=== PATIENT | male | born 1955 | race Caucasian/White ===

== ENCOUNTER 2021-04-28 20:48 | Emergency (ER) | payer OTHER ==
[~2021-04-28] VITALS: Ht 175.3 cm; Wt 90.7 kg
[2021-04-28] MEDS ORDERED: Lisinopril-Hct1 EAC4 PO (21:27)
[2021-05-01 00:09] LABS: HCV ANTIBODY <0.1 (0.0-0.9); HIV SCREEN 4TH GENERATION WRFX Non Reactive (Non Reactive)
== END 2021-04-28 21:25 | disposition home or self-care (01) ==
LOC: ER 20:48
DX: S69.82XA Other specified injuries of left wrist, hand and finger(s), initial encounter (principal); Z77.21 Contact with and (suspected) exposure to potentially hazardous body fluids; W46.1XXA Contact with contaminated hypodermic needle, initial encounter
CPT/HCPCS: 84460; 86317; 86703; 86803; 87340; 87389; 99283

== ENCOUNTER 2021-10-20 06:10 | Day surgery (SDC) | payer OTHER ==
[~2021-10-20] VITALS: Ht 175.3 cm; Wt 92.8 kg
[~2021-10-20 06:10] MED LIST: Lisinopril-Hct1 EAC4 PO
--- NOTE | 2021-10-20 06:20 | NUR ---
Ambulatory in Day Surgery. PT STATES THOMAS WILL DRIVE HIM HOME. Patient confirms NPO status and agrees with scheduled surgery. Pre-Op teaching done. Pt verbalizes understanding. Patient States Post-Procedure ride home has been arranged.
--- NOTE | 2021-10-20 09:54 | NUR ---
ASSUMED CARE AT 0950. REPORT FROM LITA CRUZ RN
--- NOTE | 2021-10-20 11:03 | NUR ---
Discharge instructions reviewed with patient. Patient verbalizes understanding. Copy given to patient to take home. Dressing to procedure site clean, dry, intact with no visible drainage, swelling, erythema or bruising noted. Discharged via wheelchair to private car for ride home.
== END 2021-10-20 11:05 | disposition home or self-care (01) ==
LOC: ORSCMMR 06:10
PROVIDERS: Surgery
PROC: 0FT44ZZ Resection of Gallbladder, Percutaneous Endoscopic Approach (ICD-10-PCS; principal; 2021-10-20 07:30)
DX: K80.10 Calculus of gallbladder with chronic cholecystitis without obstruction (principal); I10 Essential (primary) hypertension; G47.33 Obstructive sleep apnea (adult) (pediatric); Z79.899 Other long term (current) drug therapy
CPT/HCPCS: 88304; A9270; J0694; J1100; J1885; J2250; J2405; J2704; J2710; J3010; J7120

== ENCOUNTER 2024-07-17 06:15 | Day surgery (SDC) | payer MEDICARE ==
[~2024-07-17] VITALS: Ht 175.3 cm; Wt 88.8 kg
[2024-07-17] VITALS (14 sets, daily range): BP systolic 113–133; BP diastolic 69–83
[~2024-07-17 06:15] MED LIST changes: +PSEUDOEPHEDRIN PO; +TADA10TA
[2024-07-17] MEDS ORDERED: CeFAZolin Sodium 2,000 MG in NS 100 ML IV SCH (06:20)
[2024-07-17] MEDS ORDERED: Lactated Ringer's 1,000 ML IV SCH (06:20)
[2024-07-17] MEDS ORDERED: IBUP600 PO (06:26)
--- NOTE | 2024-07-17 06:46 | NUR ---
History, Chart, Medications and Allergies reviewed before start of procedure. Patient confirms NPO status and agrees with scheduled surgery. Patient States Post-Procedure ride home has been arranged with patient's , Felecia.
[2024-07-17] MEDS ORDERED: Bupivacaine 0.5% HCl 5 MG/ML 30MLVIAL ONE (07:04)
[2024-07-17] MEDS ORDERED: CeFAZolin Sodium 2,000 MG VIAL ONE (07:05)
[2024-07-17] MEDS ORDERED: Midazolam HCl 1MG / ML 2ML Vial IV SCH (07:20)
[2024-07-17] MEDS ORDERED: FentaNYL Citrate 50 MCG/ML 2 ML Injection ONE ×2 (07:29→09:49)
[2024-07-17] MEDS ORDERED: propofoL 20 ML IV ONE (07:29)
[2024-07-17] MEDS ORDERED: Dexamethasone Sod Phos 10 MG/ML 1ML VIAL ONE (08:48)
[2024-07-17] MEDS ORDERED: Ondansetron HCl 2 MG / ML 2ML Vial ONE (08:48)
[2024-07-17] MEDS ORDERED: Rocuronium Bromide 10 MG/ML 5ML Injection IV ONE (08:48)
[2024-07-17] MEDS ORDERED: Phenylephrine HCl 10mg/ml 1 ml Vial ONE (08:49)
[2024-07-17] MEDS ORDERED: Sugammadex Sodium 200 MG/2ML SDV (100 MG/ML) ONE (08:53)
[2024-07-17] MEDS ORDERED: Ketorolac Tromethamine 30mg Vial ONE (08:55)
[2024-07-17] MEDS ORDERED: HYDROmorphone HCl/Pf 1MG SYR ONE (09:00)
[2024-07-17] MEDS ORDERED: HYDROcodone 5-APAP 325 TAB PO PRN (09:35)
--- NOTE | 2024-07-17 11:20 | NUR ---
DISCHARGE NOTE PT A&OX4, BREATHING RA, TOLERATING PO INTAKE, PO PAIN MEDICATION GIVEN PER MD ORDERS. AT BEDSIDE. PT GLASSES IN PLACE, RING BACK ON PRIOR TO DISCHARGE Discharge instructions reviewed with patient. Patient verbalizes understanding. Copy given to patient to take home. Dressing to procedure site clean, dry, intact with no visible drainage, swelling, OR ERYTHEMA NOTED, MILD BRUISING TO L FURTHEST INCISION NOTED. Discharged via wheelchair to private car for ride home.
== END 2024-07-17 11:20 | disposition home or self-care (01) ==
LOC: ORSCMMR 06:15 → ORD 07:30 → ORSCMMR 07:30
PROVIDERS: Surgery
PROC: 0YU64JZ Supplement Left Inguinal Region with Synthetic Substitute, Percutaneous Endoscopic Approach (ICD-10-PCS; principal; 2024-07-17 07:30)
PROC: 8E0W4CZ Robotic Assisted Procedure of Trunk Region, Percutaneous Endoscopic Approach (ICD-10-PCS; principal; 2024-07-17 07:30)
DX: K40.90 Unilateral inguinal hernia, without obstruction or gangrene, not specified as recurrent (principal); I10 Essential (primary) hypertension; G47.33 Obstructive sleep apnea (adult) (pediatric); C61 Malignant neoplasm of prostate; Z79.899 Other long term (current) drug therapy
CPT/HCPCS: A9270; C1781; J0690; J1100; J1171; J1885; J2250; J2371; J2405; J2704; J3010; J7120

== ENCOUNTER 2024-11-17 09:16 | Day surgery (SDC) | payer MEDICARE ==
[~2024-11-17] VITALS: Ht 175.3 cm; Wt 87.2 kg
[2024-11-17] VITALS (12 sets, daily range): BP systolic 100–139; BP diastolic 63–91
[~2024-11-17 09:16] MED LIST changes: +Acetaminophen 500 MG Tab PO SCH; +Bupivacaine 0.5% Inj 10 ML Vial ONE; +CeFAZolin Sodium 2,000 MG VIAL ONE; +CeFAZolin Sodium 2,000 MG in NS 100 ML IV SCH; +Chlorhexidine Mouth Care 15 ML UDC MT SCH; +IBUP600 PO; +Lactated Ringer's 1,000 ML IV SCH; +OxyCODONE HCL 10 MG TABCR PO SCH; +Ropivacaine 0.5% HCl/Pf 123.125 MG,EPINEPHrine HCL 0.25 MG,Ketorolac Tromethamine 15 MG... INFIL SCH; -TADA10TA; +TADA10TA PO; +Tranexamic Acid 100 ML IV SCH; +propofoL 100 ML IV ONE
--- NOTE | 2024-11-17 09:52 | NUR ---
Ambulatory in Day Surgery History, Chart, Medications and Allergies reviewed before start of procedure. Pre-Op teaching done. Pt verbalizes understanding.
[2024-11-17] MEDS ORDERED: Ketorolac Tromethamine 30mg Vial ONE (10:07)
[2024-11-17] MEDS ORDERED: Dexamethasone Sod Phos 10 MG/ML 1ML VIAL ONE (10:07)
[2024-11-17] MEDS ORDERED: Ondansetron HCl 2 MG / ML 2ML Vial ONE (10:07)
[2024-11-17] MEDS ORDERED: Promethazine HCl 25 MG Tab PO PRN (10:40)
[2024-11-17] MEDS ORDERED: FLU VACC TS2024-25(6MOS UP)/PF 45 MCG/0.5 ML SYRINGE IM SCH (10:45)
[2024-11-17] MEDS ORDERED: DiphenhydrAMINE HCL 25 MG Cap PO PRN (10:45)
[2024-11-17] MEDS ORDERED: Bisacodyl 10 MG Supp PR PRN (10:45)
[2024-11-17] MEDS ORDERED: Metoclopramide HCl 5MG / ML 2ML Vial IV PRN (10:45)
[2024-11-17] MEDS ORDERED: HYDROmorphone HCl/Pf 1MG SYR IV PRN (10:45)
[2024-11-17] MEDS ORDERED: Magnesium Hydroxide Conc 10 ML UDC PO PRN (10:50)
[2024-11-17] MEDS ORDERED: Lactated Ringer's 1,000 ML IV SCH (10:50)
[2024-11-17] MEDS ORDERED: Ondansetron HCl 2 MG / ML 2ML Vial IV PRN (10:50)
[2024-11-17] MEDS ORDERED: OxyCODONE HCL 5 MG TAB PO PRN ×2 (10:50)
[2024-11-17] MEDS ORDERED: FentaNYL Citrate 50 MCG/ML 2 ML Injection ONE (10:59)
[2024-11-17] MEDS ORDERED: Phenylephrine HCl 100 MCG/ML-NS 10MLSYR (1MG/10ML) ONE ×2 (11:14→12:05)
[2024-11-17] MEDS ORDERED: ePHEDrine Sulfate 50 MG/ML 1ML Injection ONE (11:17)
[2024-11-17] MEDS ORDERED: Ketorolac Tromethamine 15mg Vial IV SCH (12:00)
--- NOTE | 2024-11-17 15:30 | NUR ---
ASSUMED CARE OF PT FROM PANFILO Marie RN.
[2024-11-17] MEDS ORDERED: Acetaminophen 500 MG Tab PO SCH (16:00)
[2024-11-17] MEDS ORDERED: ASPI81CH PO (17:08)
--- NOTE | 2024-11-17 17:22 | NUR ---
Pt. is awake and sitting with his legs up in a recliner when he welcomed my visit. 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 Facilitated a life review, and listened with interest and empathy. Rapport is established. Pt. verbalized gratitude for the spiritual care visit.
--- NOTE | 2024-11-17 17:31 | NUR ---
SUMMARY NO ACUTE CHANGES SINCE ASSUMING CARE OF PT. PT WORKED WITH THERAPY. MEDICATED PER ORDERS FOR PAIN. ATTEMPTED TO VOID WITH NO SUCCESS. BS SHOWED ONLY 227 IN BLADDER. PT DRINKING FLUIDS. DESIRES TO DC HOME THIS EVENING. SITTING UP IN RECLINER, CALL LIGHT IN REACH.
--- NOTE | 2024-11-17 18:40 | NUR ---
discharged PT WORKED WITH THERAPY/CLEARED. VOIDED. TOLERATED PO. DESIRED TO DC HOME. REVIEWED DC INSTRUCTIONS W/PT; VERBALIZED UNDERSTANDING. PT LEFT UNIT IN WC W/POSSESSIONS, POLAR PACK, DRESSINGS AND DC PAPERWORK IN HAND TO MEET RIDE OUTSIDE.
[2024-11-17] MEDS ORDERED: CeFAZolin Sodium 2,000 MG in NS 100 ML IV SCH (19:30)
[2024-11-17] MEDS ORDERED: Docusate Sodium 100 MG Cap PO SCH (21:00)
[2024-11-18] MEDS ORDERED: Lisinopril 10 MG Tab PO SCH (09:00)
[2024-11-18] MEDS ORDERED: HydroCHLOROthiazide 25 mg Tab PO SCH (09:00)
[2024-11-18] MEDS ORDERED: Aspirin 81 MG Chew PO SCH (09:00)
== END 2024-11-17 18:30 | disposition home or self-care (01) ==
LOC: ORSCMMR 09:16 → ORD 10:00 → SURS 13:27 → ORSCMMR 18:30 → SURS 18:30
DX: M17.12 Unilateral primary osteoarthritis, left knee (principal); I10 Essential (primary) hypertension; G47.33 Obstructive sleep apnea (adult) (pediatric); Z79.899 Other long term (current) drug therapy; Z85.46 Personal history of malignant neoplasm of prostate
CPT/HCPCS: 73560-LT; 97116; 97161; 97530; A9270; C1713; C1776; J0171; J0690; J0735; J1100; J1885; J2371; J2405; J2704; J2795; J3010; J7120